=== PATIENT | male | born 1960 | race Caucasian/White ===

== ENCOUNTER 2016-11-30 23:12 | Emergency (ER) | payer OTHER ==
[2016-12-01] MEDS ORDERED: CEPHALEXIN 500 MG CAPSULE ONE (00:43)
== END 2016-12-01 00:59 | disposition home or self-care (01) ==
LOC: ED 23:12
DX: L03.114 Cellulitis of left upper limb (principal)
CPT/HCPCS: 99283 ×2; A9270